=== PATIENT | male | born 1960 | race Caucasian/White ===

== ENCOUNTER → 2017-07-12 | Outpatient (CLI) | payer OTHER ==
[2017-07-12 09:39] LABS: ABSOLUTE EOSINOPHILS # (AUTO) 0.1 10^3/uL (0.0-0.6); ABSOLUTE LYMPHOCYTES (AUTO) 1.5 10^3/uL (0.5-4.7); ABSOLUTE MONOCYTES (AUTO) 0.3 10^3/uL (0.1-1.4); BASOPHILS % (AUTO) 0.7 % (0-2); HEMATOCRIT 44.8 % (37.9-51.0); HEMOGLOBIN 15.7 g/dL (13.5-17.0); HGB HCT DIFFERENCE 2.3; LYMPHOCYTES % (AUTO) 30.4 % (13-45); MEAN CORPUSCULAR HEMOGLOBIN 32.4 pg (27.0-33.4); MEAN CORPUSCULAR VOLUME 93 fl (80-97); MONOCYTES % (AUTO) 6.6 % (3-13); RED BLOOD COUNT 4.84 10^6/uL (4.35-5.55); RED CELL DISTRIBUTION WIDTH 13.8 % (11.5-14.0); SEGMENTED NEUTROPHILS % (AUTO) 60.3 % (42-78)
[2017-07-12 09:55] LABS: ALANINE AMINOTRANSFERASE 106 U/L (21-72); ALBUMIN 4.5 g/dL (3.5-5.0); ALKALINE PHOSPHATASE 75 U/L (38-126); ANION GAP 11 (5-19); ASPARTATE AMINO TRANSFERASE 49 U/L (17-59); BILIRUBIN,DIRECT 0.2 mg/dL (0.0-0.4); BILIRUBIN,TOTAL 1.1 mg/dL (0.2-1.3); BLOOD UREA NITROGEN 16 mg/dL (7-20); CALCIUM 9.3 mg/dL (8.4-10.2); CARBON DIOXIDE 29 mmol/L (22-30); CHLORIDE 102 mmol/L (98-107); CHOLESTEROL 164.89 mg/dL (0-200); CREATININE RESULT 0.97 mg/dL (0.52-1.25); Direct HDL 36 mg/dL (>40); GLUCOSE 95 mg/dL (75-110); POTASSIUM 4.4 mmol/L (3.6-5.0); SODIUM 141.8 mmol/L (137-145); TOTAL PROTEIN 7.3 g/dL (6.3-8.2); TRIGLYCERIDES 284 mg/dL (<150)
[2017-07-12 10:06] LABS: DIRECT LDL 69 mg/dL (<100)
[2017-07-12 10:28] LABS: VLDL CHOLESTEROL 56.8 mg/dL (10-31)
--- NOTE | 2017-07-12 23:12 | EKG REPORT ---
SEVERITY:- BORDERLINE ECG - SINUS RHYTHM PROBABLE LEFT ATRIAL ABNORMALITY : Confirmed by: Roc Perkins 12-Jul-2017 23:11:38
== END ==
LOC: OD 09:01
PROVIDERS: ATTEND Obstetrics & Gynecology
DX: R07.9 Chest pain, unspecified (principal); I51.9 Heart disease, unspecified; R94.31 Abnormal electrocardiogram [ECG] [EKG]
CPT/HCPCS: 36415; 80053; 80061; 83036; 84153; 85025; 93005; 93010

== ENCOUNTER → 2017-08-09 | Outpatient (CLI) | payer OTHER ==
[2017-08-09 12:54] LABS: CHOLESTEROL 127.37 mg/dL (0-200); TRIGLYCERIDES 155 mg/dL (<150)
[2017-08-09 13:05] LABS: DIRECT LDL 61 mg/dL (<100)
== END ==
LOC: OD 11:06
PROVIDERS: ATTEND Obstetrics & Gynecology
DX: E78.1 Pure hyperglyceridemia (principal)
CPT/HCPCS: 36415; 80061

== ENCOUNTER → 2017-09-23 | Outpatient (CLI) | payer OTHER ==
[2017-09-23 11:36] LABS: ALANINE AMINOTRANSFERASE 63 U/L (21-72); ALBUMIN 4.3 g/dL (3.5-5.0); ALKALINE PHOSPHATASE 66 U/L (38-126); ASPARTATE AMINO TRANSFERASE 29 U/L (17-59); BILIRUBIN,DIRECT 0.1 mg/dL (0.0-0.4); BILIRUBIN,TOTAL 0.8 mg/dL (0.2-1.3); TOTAL PROTEIN 6.5 g/dL (6.3-8.2)
== END ==
LOC: OD 10:11
PROVIDERS: ATTEND Obstetrics & Gynecology
DX: R94.5 Abnormal results of liver function studies (principal)
CPT/HCPCS: 36415; 80076

== ENCOUNTER 2017-10-23 17:50 | Emergency (ER) | payer OTHER ==
[2017-10-23 19:29] LABS: APPEARANCE,URINE CLEAR; COLOR,URINE STRAW; GLUCOSE, URINE NEGATIVE (NEGATIVE)
[2017-10-23 19:30] LABS: BILIRUBIN,URINE NEGATIVE (NEGATIVE); KETONES,URINE NEGATIVE (NEGATIVE); LEUKOCYTE ESTERASE,URINE NEGATIVE (NEGATIVE); NITRITE,URINE NEGATIVE (NEGATIVE); PROTEIN,URINE NEGATIVE (NEGATIVE); URINE SPECIFIC GRAVITY 1.025; UROBILINOGEN,URINE NEGATIVE mg/dL (<2.0)
[2017-10-23] MEDS ORDERED: HYDROMORPHONE HCL INJ/PF 2 MG/ML AMPULE IM ONE (20:24)
--- NOTE | 2017-10-23 20:24 | ER Document Report ---
ED General - General Chief Complaint: Flank Pain Stated Complaint: RIGHT FLANK PAIN Time Seen by Provider: 10/23/17 20:12 Mode of Arrival: Ambulatory Information source: Patient Notes: 57-year-old male with a history of chronic back pain, kidney stones, depression presents with complaint of right-sided flank pain that started 5 hours prior to arrival. Patient describes the pain as sharp, intermittent with radiation to the right lower quadrant. Patient has had prior similar symptoms approximately 1 year ago. He states he has had 3 episodes of kidney stones and has been able to pass them on his own every time. He denies any fever, chills, chest pain, shortness of breath, abdominal pain, dysuria, hematuria. Has not taken anything for pain. TRAVEL OUTSIDE OF THE [place] IN LAST 30 DAYS: No - HPI Onset: This afternoon Onset/Duration: Gradual Quality of pain: Achy, Sharp, Stabbing, Throbbing Severity: Moderate Associated symptoms: Nausea. denies: Body/muscle aches, Chills, Diarrhea, Fever , Vomiting Exacerbated by: Denies Relieved by: Denies Similar symptoms previously: Yes Recently seen / treated by doctor: No - Related Data Allergies/Adverse Reactions: No Known Allergies Allergy (Verified 10/23/17 17:51) Past Medical History - General Information source: Patient - Social History Smoking Status: Never Smoker Chew tobacco use (# tins/day): No Frequency of alcohol use: None Drug Abuse: None Lives with: Spouse/Significant other - Urolithiasis Family History: Reviewed & Not Pertinent Patient has suicidal ideation: No Patient has homicidal ideation: No - Past Medical History Cardiac Medical History: Denies: Hx Heart Attack, Hx Hypertension Pulmonary Medical History: Denies: Hx Asthma Neurological Medical History: Denies: Hx Cerebrovascular Accident, Hx Seizures Renal/ Medical History: Denies: Hx Peritoneal Dialysis GI Medical History: Denies: Hx Hepatitis, Hx Hiatal Hernia, Hx Ulcer Psychiatric Medical History: Reports: Hx Depression Infectious Medical History: Denies: Hx Hepatitis Past Surgical History: Denies: Hx Open Heart Surgery, Hx Pacemaker - Immunizations Hx Diphtheria, Pertussis, Tetanus Vaccination: No Review of Systems - Review of Systems Constitutional: No symptoms reported. denies: Fever, Weakness EENT: denies: Ear pain Cardiovascular: denies: Chest pain, Syncope Respiratory: denies: Cough, Short of breath Gastrointestinal: denies: Abdominal pain Genitourinary: Flank pain - right. denies: Dysuria, Hematuria Male Genitourinary: denies: Penile discharge Musculoskeletal: Back pain Skin: No symptoms reported Hematologic/Lymphatic: No symptoms reported Neurological/Psychological: No symptoms reported Physical Exam - Vital signs Vitals: Temp Pulse Resp BP Pulse Ox 97.5 F 59 L 18 151/88 H 98 10/23/17 17:53 10/23/17 17:53 10/23/17 17:53 10/23/17 17:53 10/23/17 17:53 Interpretation: Normal, Hypertensive. No: Tachycardic, Febrile - General General appearance: Appears well, Alert In distress: Mild - HEENT Head: Normocephalic, Atraumatic Eyes: Normal Extraocular movements intact: Yes Pupils: PERRL - Respiratory Respiratory status: No respiratory distress Chest status: Nontender Breath sounds: Normal Chest palpation: Normal - Cardiovascular Rhythm: Regular Heart sounds: Normal auscultation Murmur: No Pulses: Normal: Radial Normal capillary refill: Yes - Abdominal Inspection: Normal Distension: No distension Bowel sounds: Normal Tenderness: Nontender Organomegaly: No organomegaly - Back Back: Normal, Nontender, CVA tenderness - right cva TTP - Extremities General upper extremity: Normal inspection, Nontender, Normal color, Normal ROM , Normal temperature. No: Edema General lower extremity: Normal inspection, Nontender, Normal color, Normal ROM , Normal temperature, Normal weight bearing. No: Edema, Clarence's sign - Neurological Neuro grossly intact: Yes Cognition: Normal Orientation: AAOx4 [place] Coma Scale Eye Opening: Spontaneous [place] Coma Scale Verbal: Oriented [place] Coma Scale Motor: Obeys Commands Hal Coma Scale Total: 15 Speech: Normal Motor strength normal: LUE, RUE, LLE, RLE Sensory: Normal - Psychological Associated symptoms: Normal affect, Normal mood - Skin Skin Temperature: Warm Skin Moisture: Dry Skin Color: Normal Skin irregularity: negative: Rash Course - Re-evaluation Re-evalutation: 10/23/17 20:43 Bedside ultrasound was performed and did show mild right hydronephrosis. Did discuss possibility of obtaining a CAT scan to assess the size of the stone. Both the patient and the agree that it is reasonable to give the patient time to pass the stone since he has in the past. Urinalysis shows large amount of blood but no evidence of infection. 10/23/17 21:58 Patient reports an improvement of pain although it is still present. Percocet and Toradol administered prior to discharge. Patient able to tolerate fluids prior to discharge. 10/24/17 23:38 57-year-old male with a history urolithiasis presents with complaint of right flank pain that started just prior to arrival. Upon arrival vitals are reviewed and within normal limits. Patient is afebrile, he is mildly hypertensive likely secondary to pain. Blood pressure improves prior to discharge although still elevated. UA significant for a large amount of blood. Bedside ultrasound showed mild right hydronephrosis. Patient received Dilaudid and Toradol during his ED course. On reevaluation he states the pain has improved although still present. He did receive additional dose of Percocet and Zofran. Urine strainer provided. Discussed with the patient and his indications that should prompt a return including persistent pain, fever, inability to tolerate p.o. both patient and are comfortable with discharge home. - Vital Signs Vital signs: Temp Pulse Resp BP Pulse Ox 97.6 F 70 18 139/96 H 98 10/23/17 22:32 10/23/17 22:32 10/23/17 17:53 10/23/17 22:32 10/23/17 22:32 - Laboratory Laboratory results interpreted by me: 10/23/17 18:34 Urine Blood LARGE H Procedures - Ultrasound/Bedside Ultrasound/Bedside Ultrasound: Other - Bedside ultrasound of the kidneys were performed and showed right mild hydronephrosis. Discharge - Discharge Clinical Impression: Urolithiasis Qualifiers: Urinary calculus location: ureter Qualified Code(s): N20.1 - Calculus of ureter Hematuria Qualifiers: Hematuria type: unspecified type Qualified Code(s): R31.9 - Hematuria, unspecified Condition: Good Disposition: HOME, SELF-CARE Instructions: Hematuria ([facility]), High Blood Pressure ([facility]), Kidney Stone ([facility]) Additional Instructions: Please continue to strain your urine. Please return if pain is persistent, worsens or you are unable to tolerate fluids. Prescriptions: Ondansetron HCl [Zofran 4 mg Tablet] 1 - 2 tab PO Q4H PRN #10 tablet PRN Reason: Oxycodone HCl/Acetaminophen [Percocet 5-325 mg Tablet] 1 - 2 tab PO Q4H PRN #15 tablet PRN Reason: Forms: Elevated Blood Pressure Referrals: JACQUELINE JAMA MD [Primary Care Provider] - Follow up as needed
[2017-10-23] MEDS ORDERED: ONDANSETRON 4 MG TAB.RAPDIS PO ONE (20:25)
[2017-10-23] MEDS ORDERED: OXYCODONE-ACETAMINOPHEN 5-325 MG TABLET PO ONE (21:57)
[2017-10-23] MEDS ORDERED: KETOROLAC TROMETHAMINE 60 MG/2 ML SDV IM ONE (21:58)
[2017-10-23 22:33] VITALS: BP 139/96
== END 2017-10-23 22:33 | disposition home or self-care (01) ==
LOC: ER 17:50
DX: N13.2 Hydronephrosis with renal and ureteral calculous obstruction (principal); R31.9 Hematuria, unspecified; R10.9 Unspecified abdominal pain; R11.0 Nausea; M54.9 Dorsalgia, unspecified
CPT/HCPCS: 99284; 96372; 81001; S0119; J1170

== ENCOUNTER → 2018-07-04 | Outpatient (CLI) | payer OTHER ==
--- NOTE | 2018-07-04 09:26 | RADIOLOGY REPORT (SQ) ---
EXAM DESCRIPTION: HAND RIGHT 3 VIEWS COMPLETED DATE/TIME: 07/04/2018 9:18 am REASON FOR STUDY: HAND PAIN D64.9 ANEMIA, UNSPECIFIED D68.62 LUPUS ANTICOAGULANT SYNDROME R10.9 U NSPECIFIED ABDOMINAL PAIN COMPARISON: None. EXAM PARAMETERS: NUMBER OF VIEWS: Three views. TECHNIQUE: AP, lateral and oblique radiographic images acquired of the right hand. LIMITATIONS: None. FINDINGS: MINERALIZATION: Normal. BONES: No acute fracture or dislocation. No worrisome bone lesions. Mild degenerative changes 1st met acarpal carpal joint. JOINTS: No erosions. No wen-articular osteopenia. No chondrocalcinosis. SOFT TISSUES: No swelling. No calcifications. OTHER: No other significant finding. IMPRESSION: Mild degenerative changes 1st metacarpal carpal joint. TECHNICAL DOCUMENTATION: JOB ID: [id number] [employer]- All Rights Reserved Reading location - IP/workstation name: [email or web address]
[2018-07-04 10:38] LABS: ABSOLUTE EOSINOPHILS # (AUTO) 0.2 10^3/uL (0.0-0.6); ABSOLUTE LYMPHOCYTES (AUTO) 1.1 10^3/uL (0.5-4.7); ABSOLUTE MONOCYTES (AUTO) 0.3 10^3/uL (0.1-1.4); BASOPHILS % (AUTO) 0.6 % (0-2); EOSINOPHILS % (AUTO) 4.9 % (0-6); HEMATOCRIT 43.1 % (37.9-51.0); HEMOGLOBIN 15.2 g/dL (13.5-17.0); LYMPHOCYTES % (AUTO) 29.2 % (13-45); MEAN CORPUSCULAR HEMOGLOBIN 32.5 pg (27.0-33.4); MEAN CORPUSCULAR HGB CONC 35.3 g/dL (32.0-36.0); MEAN CORPUSCULAR VOLUME 92 fl (80-97); MONOCYTES % (AUTO) 9.3 % (3-13); PLATELET COUNT 164 10^3/uL (150-450); RED BLOOD COUNT 4.68 10^6/uL (4.35-5.55); RED CELL DISTRIBUTION WIDTH 13.5 % (11.5-14.0); TOTAL CELLS COUNTED % (AUTO) 100 %; WHITE BLOOD COUNT 3.6 10^3/uL (4.0-10.5)
[2018-07-04 10:51] LABS: ALANINE AMINOTRANSFERASE 85 U/L (21-72); ALBUMIN 4.2 g/dL (3.5-5.0); ALKALINE PHOSPHATASE 85 U/L (38-126); ANION GAP 12 (5-19); ASPARTATE AMINO TRANSFERASE 55 U/L (17-59); BILIRUBIN,DIRECT 0.1 mg/dL (0.0-0.4); BILIRUBIN,TOTAL 0.5 mg/dL (0.2-1.3); BLOOD UREA NITROGEN 16 mg/dL (7-20); CALCIUM 9.4 mg/dL (8.4-10.2); CARBON DIOXIDE 28 mmol/L (22-30); CHLORIDE 103 mmol/L (98-107); CHOLESTEROL 119.75 mg/dL (0-200); GLUCOSE 104 mg/dL (75-110); POTASSIUM 4.5 mmol/L (3.6-5.0); SODIUM 142.9 mmol/L (137-145); TRIGLYCERIDES 253 mg/dL (<150)
[2018-07-04 11:02] LABS: DIRECT LDL 58 mg/dL (<100)
[2018-07-04 11:58] LABS: VLDL CHOLESTEROL 50.6 mg/dL (10-31)
--- NOTE | 2018-07-05 10:54 | EKG REPORT ---
SEVERITY:- ABNORMAL ECG - SINUS RHYTHM VENTRICULAR PREMATURE COMPLEX LEFT ATRIAL ABNORMALITY : Confirmed by: Roc Perkins 05-Jul-2018 10:53:29
== END ==
LOC: OD 08:37
PROVIDERS: ATTEND Internal Medicine
DX: D64.9 Anemia, unspecified (principal); D68.62 Lupus anticoagulant syndrome; R10.9 Unspecified abdominal pain; M06.9 Rheumatoid arthritis, unspecified; R07.9 Chest pain, unspecified
CPT/HCPCS: 36415; 80053; 80061; 82607; 82746; 83036; 84443; 85025; 86038; 86430; 86431; 93005; 93010

== ENCOUNTER → 2018-07-11 | Outpatient (CLI) | payer OTHER | LOC: OD 10:13 | PROVIDERS: ATTEND Internal Medicine | DX: M25.50 Pain in unspecified joint (principal); R76.8 Other specified abnormal immunological findings in serum | CPT/HCPCS: 36415; 86225 ==

== ENCOUNTER → 2018-08-06 | Outpatient (CLI) | payer OTHER ==
--- NOTE | 2018-08-06 18:08 | XCELERA REPORT ---
[address] [address] Transthoracic Echocardiogram Report Name: ROSCOE SANCHEZ Age: 58 yrs Gender: Male : 1960 Patient Status: Outpatient Patient Location: Study Date: 08/06/2018 03:21 PM Height: 69 in Weight: 177 lb BSA: 2.0 m2 Reason For Study: MVP Ordering Physician: ROLF SERRANO Performed By: Ihsan Montez Interpretation Summary Near normal ECHO for age. Only mild AVsclerosis with no , AV configuration not easily delineated, doubt BAV, javier. no AR.and no . MV anterior leaflet is slightly thickened, but no convincing prolapse, and only mild MR with upper normal LA size by M-Mode, No JOSE ALFREDO calculated. Normal LV thickness with mild IVS hypokinesis, and no other segmental regional wall motion abnormality, and no LV enlargement. Normal LVEF and no LV diastolic dysfunction. R Heart is normal, no TV prolapse, and upper normal RVSP with no pulm hypertension. MMode/2D Measurements & Calculations RVDd: 2.3 cm LVIDd: 4.9 cm FS: 37.3 % Ao root diam: 3.4 cm IVSd: 0.48 cm LVIDs: 3.1 cm EDV(Teich): 111.3 ml LVPWd: 0.96 cm ESV(Teich): 36.5 ml Ao root area: 9.2 cm2 LA dimension: 3.9 cm EF(Teich): 67.2 % LVOT diam: 1.9 cm LVOT area: 2.8 cm2 Doppler Measurements & Calculations MV E max marija: MV P1/2t max marija: Ao V2 max: LV V1 max P.4 cm/sec 95.0 cm/sec 113.2 cm/sec 3.7 mmHg MV A max marija: MV P1/2t: 74.3 msec Ao max P.1 mmHg LV V1 max: 89.8 cm/sec MVA(P1/2t): 3.0 cm2 PHOEBE(V,D): 2.4 cm2 95.8 cm/sec MV E/A: 0.95 MV dec slope: 374.8 cm/sec2 MV dec time: 0.33 sec PA V2 max: TR max marija: MV P1/2t-pr_phl: 85.9 cm/sec 255.2 cm/sec 74.3 msec PA max PG: TR max P.0 mmHg 3.0 mmHg Left Ventricle The left ventricle is normal in size. There is normal left ventricular wall thickness. The left ventricular ejection fraction is normal. LV EF is 65%. Doppler measurements suggest normal left ventricular diastolic function. No regional wall motion abnormalities noted. There is no thrombus. Right Ventricle The right ventricle is normal size. The right ventricular systolic function is normal. Atria The right atrium is normal. The left atrial size is normal. BIPLANE JOSE ALFREDO not calculated. The interatrial septum is intact with no evidence for an atrial septal defect. Mitral Valve The mitral valve is normal in structure and function. The mitral valve leaflets are sclerotic, but show no functional abnormalities. There is no mitral annular calcification. The mitral valve leaflets are thickened and redundant without clear evidence of mitral valve prolapse. There is no mitral valve stenosis. There is a mild amount of mitral regurgitation. Aortic Valve The aortic valve is trileaflet. The aortic valve opens well. The aortic valve is sclerotic, but shows no functional abnormality. There is no aortic valvular vegetation. There is no aortic valve stenosis. No aortic regurgitation is present. Tricuspid Valve The tricuspid valve is not well visualized, but is grossly normal. There is no tricuspid valve prolapse. There is no tricuspid stenosis. There is a mild amount of tricuspid regurgitation. RSVP is equal to 29. Right ventricular systolic pressure is at the upper limits of normal. Pulmonic Valve The pulmonic valve is not well visualized. There is no pulmonic valvular regurgitation. Great Vessels The aortic root is normal size. Effusions Minimal pericardial effusion. I WMSI = 1.13 % Normal = 88 Segments Size X - Cannot 2 - 4 - 1-2 small Interpret 1 - Normal Hypokinetic 3 - AkineticDyskinetic 3-5 moderate 5 - 6-14 large Aneurysmal 15-16 diffuse : ROLF SERRANO > Regino Montenegro
== END ==
LOC: SP 15:00
PROVIDERS: ATTEND Internal Medicine
DX: I34.1 Nonrheumatic mitral (valve) prolapse (principal)
CPT/HCPCS: 93306

== ENCOUNTER → 2019-01-02 | Outpatient (CLI) | payer OTHER ==
[2019-01-02 12:31] LABS: CHOLESTEROL 138.93 mg/dL (0-200); TRIGLYCERIDES 246 mg/dL (<150)
[2019-01-02 12:41] LABS: DIRECT LDL 69 mg/dL (<100)
[2019-01-02 12:45] LABS: VLDL CHOLESTEROL 49.2 mg/dL (10-31)
== END ==
LOC: OD 09:49
PROVIDERS: ATTEND Internal Medicine
DX: E78.5 Hyperlipidemia, unspecified (principal)
CPT/HCPCS: 36415; 80061

== ENCOUNTER → 2019-03-09 | Outpatient (CLI) | payer OTHER ==
--- NOTE | 2019-03-10 10:51 | RADIOLOGY REPORT (SQ) ---
EXAM DESCRIPTION: MRI ABDOMEN COMBO COMPLETED DATE/TIME: 03/09/2019 5:31 pm REASON FOR STUDY: R93.5 ABN FINDINGS ON DX IMAGING OF ABD REGIONS, INC RETROPERITON R93.5 ABN FINDI NGS ON DX IMAGING OF ABD REGIONS, INC RETROPE R10.9 UNSPECIFIED ABDOMINAL PAIN COMPARISON: 02/23/2019 ultrasound. TECHNIQUE: T1, T1 in and out of phase, T2 fat sat, T1 post gadolinium sequences. CONTRAST TYPE AND DOSE: 20 mL Dotarem. RENAL FUNCTION: Not needed. LIMITATIONS: Mild motion artifact. FINDINGS: LIVER: No mass or duct dilatation. No enhancing lesions. SPLEEN: Normal size. No focal lesions. PANCREAS: No masses. No adjacent inflammation or peripancreatic fluid collections. Pancreatic duct no t dilated. GALLBLADDER: No wall thickening or pericholecystic fluid. Probable tiny stones or polyps. See ultra sound. ADRENAL GLANDS: No significant masses or asymmetry. RIGHT KIDNEY AND URETER: No mass. Probable parapelvic cysts, doubt hydronephrosis. LEFT KIDNEY AND URETER: Cysts. No solid mass or evidence of obstruction. AORTA AND VESSELS: No aneurysm. No dissection. Renal arteries, SMA, celiac without stenosis. RETROPERITONEUM: No retroperitoneal adenopathy, hemorrhage or masses. BOWEL: No visualized masses. No inflammation. No significant dilatation. ABDOMINAL WALL AND PERITONEUM: No hernias. No free fluid. BONES: No acute or significant findings. OTHER: No other significant finding. IMPRESSION: 1. No liver lesions. 2. Suspect right renal parapelvic cysts. Doubt obstruction. TECHNICAL DOCUMENTATION: JOB ID: [id number] [employer]- All Rights Reserved Reading location - IP/workstation name: [email or web address]
== END ==
LOC: RAD 16:21
PROVIDERS: ATTEND Family Medicine Geriatric Medicine
DX: R93.5 Abnormal findings on diagnostic imaging of other abdominal regions, including retroperitoneum (principal); R10.9 Unspecified abdominal pain
CPT/HCPCS: 82565; 74183; A9576

== ENCOUNTER → 2019-08-11 | Outpatient (CLI) | payer OTHER ==
--- NOTE | 2019-08-14 11:39 | RADIOLOGY REPORT (SQ) ---
EXAM DESCRIPTION: CT SINUSES FOR ENT COMPLETED DATE/TIME: 08/11/2019 5:43 pm REASON FOR STUDY: (J32.9)CHRONIC SINUSITIS, UNSPECIFIED J32.9 CHRONIC SINUSITIS, UNSPECIFIED COMPARISON: None. TECHNIQUE: Noncontrast scanning through the paranasal sinuses using bone algorithm. Reconstructed MPR images reviewed. All images stored on PACS. All CT scanners at this facility use dose modulation, iterative reconstruction, and/or weight based d osing when appropriate to reduce radiation dose to as low as reasonably achievable (ALARA). [facility]: Dose Right [facility]: CareDose [facility]: Dose Right [facility]: Teradose 4D [facility]: Mobileum RADIATION DOSE: 47mGy. LIMITATIONS: None. FINDINGS: Right sinuses and drainage pathways: Post-surgical changes: Surgical widening of the right maxillary outlet on coronal images 105/370 to 1 30/370 Frontal sinus: Normal. Frontoethmoidal Recess: Normal. Anterior Ethmoid Sinuses: Normal. Posterior Ethmoid Sinuses: Normal. Sphenoid Sinus: Normal. Sphenoethmoidal Recess: Normal. Maxillary Sinus: Normal. Ostiomeatal Complex: Surgically widened, patent Left Sinuses and Drainage Pathways: Post-Surgical Changes: Surgical widening of the left maxillary outlet on coronal images 105/370 to 1 30/370. Resection of left-sided agar Nasi cells on coronal image 105/376 Frontal Sinus: Normal. Frontoethmoidal Recess: Normal. Anterior Ethmoid Sinuses: Normal. Posterior Ethmoid Sinuses: Normal. Sphenoid Sinus: Normal. Sphenoethmoidal Recess: Normal. Maxillary Sinus: Normal. Ostiomeatal Complex: Surgically widened, patent Right Olfactory Fossa: No polyps. Left Olfactory Fossa: No polyps. Middle Turbinate Nenita Bullosa: No. Paradoxical Middle Turbinate: No. Atelectatic Uncinated Process: No. Frontal Triston Cell Type I: No. Frontal Triston Cell Type II: No. Interfrontal Sinus Septal Cell: None. Supra-Orbital Ethmoid: None. Frontal Bullar Cell: None. Suprabullar Bullar Cell: None. Sphenoethmoidal ([place]) Cell: None. Pneumatization of the Anterior Clinoid Processes: No Hypoplastic Maxillary Sinus: None. Osteoneogenesis: None. Bone Dehiscence:None. Nasal Cavity: Normal. Nasal Septum: Convex leftward posterior half, axial image 76 Anatomic Variants: Right Vidian Canal: Normal. Left Vidian Canal: Normal. IMPRESSION: Postsurgical changes bilaterally. No mucous membrane thickening or air-fluid levels wor risome for acute sinusitis TECHNICAL DOCUMENTATION: JOB ID: [id number] Quality ID # [id number]: Final reports with documentation of one or more dose reduction techniques (e.g., Au tomated exposure control, adjustment of the mA and/or kV according to patient size, use of iterative reconstruction technique) 2010 [employer]- All Rights Reserved Reading location - IP/workstation name: [email or web address]
== END ==
LOC: RAD 17:01
PROVIDERS: ATTEND Otolaryngology
DX: J32.9 Chronic sinusitis, unspecified (principal)
CPT/HCPCS: 70486